=== PATIENT | female | born 1950 ===

== ENCOUNTER 2025-03-02 10:57 | Inpatient (IN) | payer MEDICARE, BC ==
[2025-03-02] MEDS ORDERED: Senokot S 8.6-50 MG TAB PO PRN (13:32)
[2025-03-02] MEDS ORDERED: Bisacodyl 10 MG SUPP PR PRN (13:32)
[2025-03-02] MEDS: Ferrous Sulfate 325 MG TAB PO SCH (16:34)
[2025-03-02] MEDS: HYDROcodone/Acetaminophen 10/325 mg Tablet PO PRN (17:27)
[2025-03-02] MEDS ORDERED: Famotidine 20 MG TAB PO SCH (21:00)
[2025-03-02] MEDS: Floranex 1 GM Packet PO SCH (21:07)
[2025-03-03 05:24] LABS: #Basophils 0.1 thou/uL (0.0-0.2); #Eosinophils 0.0 thou/uL (0.0-0.7); #Lymphocytes 3.8 thou/uL (1.20-3.40); #Monocytes 1.0 thou/uL (0.11-0.59); #Neutrophils 4.6 thou/uL (1.40-6.50); %Basophils 1.4 % (0.0-1.0); %Eosinophils 0.5 % (0.0-10.0); %Lymphocytes 39.5 % (21.0-51.0); %Monocytes 10.2 % (0.0-10.0); %Neutrophils 48.5 % (42.0-75.0); Hematocrit 36.6 % (36.0-47.0); Hemoglobin 12.8 g/dL (12.0-16.0); Mean Corpuscular Hemoglobin 31.7 pg (27.0-31.0); Mean Corpuscular Volume 90.4 fl (78.0-98.0); Platelet Count 234 10x3/uL (130-400); Red Blood Cell (RBC) Count 4.05 mill/uL (4.20-5.40); White Blood Cell (WBC) Count 9.5 10x3/uL (4.8-10.8)
[2025-03-03 05:32] LABS: ALT (SGPT) 16 U/L (Less than 34); AST (SGOT) 20 U/L (11-34); Albumin 3.4 g/dL (3.1-4.5); Alkaline Phosphatase 50 U/L (40-110); Anion Gap 16 mmol/L (10-20); BUN (Urea Nitrogen) 15 mg/dL (9.8-20.1); Bilirubin, Total 0.2 mg/dL (0.3-1.2); Calc. Creatinine Clearance 101 mL/min (70-130); Calcium 9.5 mg/dL (7.8-10.44); Carbon Dioxide 24 mmol/L (23-31); Chloride 99 mmol/L (98-107); Globulin 3.7 g/dL (2.4-3.5); Glucose 96 mg/dL (83-110); Potassium 3.9 mmol/L (3.5-5.1); Sodium 135 mmol/L (136-145)
[2025-03-03] MEDS ORDERED: predniSONE 10 MG TAB PO SCH (09:00)
[2025-03-03] MEDS: Pantoprazole 40 MG DR.TAB PO SCH (09:33)
[2025-03-03] MEDS: predniSONE 10 MG TAB PO SCH (09:33)
[2025-03-03] MEDS: Folic Acid 1 MG TAB PO SCH (09:34)
[2025-03-03] MEDS: Cyanocobalamin (Vitamin B-12) 1,000 MCG TAB PO SCH (09:34)
[2025-03-03] MEDS: Calcium Carbonate 600 MG + Vit D TAB PO SCH (09:34)
[2025-03-03] MEDS: Cholecalciferol 1,000 UNITS (25 MCG) TAB PO SCH (09:34)
[2025-03-03] MEDS: Acetaminophen 325 MG TAB PO PRN (11:38)
[2025-03-03] MEDS: Transdermal Patch Removal TOP SCH (20:13)
[2025-03-04 11:18] LABS: Glucose, Urine (Dipstick) Negative (Negative); Leukocyte Trace (Negative); Protein, Urine (Dipstick) 30 mg/dL (Neg-Trace); Specific Gravity, Urine 1.010 (1.005-1.030)
[2025-03-04 11:19] LABS: CAUTI Indications for Culture Dysuria,urgency,freq; RBC/HPF 0-3 HPF (0-3); WBC/HPF 0-3 HPF (0-3)
[2025-03-04 11:20] LABS: Urine Culture Reflex No No
[2025-03-06] MEDS: Oxybutynin 5 MG TAB PO SCH (09:32)
[2025-03-08 09:28] LABS: %Eosinophils 0.3 % (0.0-10.0); %Lymphocytes 31.6 % (21.0-51.0); %Monocytes 75.6 % (0.0-10.0); %Neutrophils 58.3 % (42.0-75.0); Hematocrit 37.4 % (36.0-47.0); Hemoglobin 13.3 g/dL (12.0-16.0); Manual Diff?? NO; Mean Corpuscular Hemoglobin 31.6 pg (27.0-31.0); Mean Corpuscular Volume 88.7 fl (78.0-98.0); Platelet Count 277 10x3/uL (130-400); Red Blood Cell (RBC) Count 4.21 mill/uL (4.20-5.40); White Blood Cell (WBC) Count 11.9 10x3/uL (4.8-10.8)
[2025-03-08 09:29] LABS: #Basophils 0.3 thou/uL (0.0-0.2); #Eosinophils 0.0 thou/uL (0.0-0.7); #Lymphocytes 3.8 thou/uL (1.20-3.40); #Monocytes 1.0 thou/uL (0.11-0.59); #Neutrophils 7.0 thou/uL (1.40-6.50); %Basophils 2.2 % (0.0-1.0)
[2025-03-08 09:38] LABS: ALT (SGPT) 12 U/L (Less than 34); AST (SGOT) 29 U/L (11-34); Albumin 3.7 g/dL (3.1-4.5); Alkaline Phosphatase 57 U/L (40-110); Anion Gap 18 mmol/L (10-20); BUN (Urea Nitrogen) 8 mg/dL (9.8-20.1); Bilirubin, Total 0.4 mg/dL (0.3-1.2); Calc. Creatinine Clearance 89 mL/min (70-130); Calcium 10.2 mg/dL (7.8-10.44); Carbon Dioxide 24 mmol/L (23-31); Chloride 96 mmol/L (98-107); Globulin 4.1 g/dL (2.4-3.5); Glucose 122 mg/dL (83-110); Potassium 3.7 mmol/L (3.5-5.1); Sodium 134 mmol/L (136-145)
[2025-03-08] MEDS: Calcium Carbonate 600 MG + Vit D TAB PO SCH (10:30)
[2025-03-09 12:07] LABS: #Basophils 0.2 thou/uL (0.0-0.2); #Eosinophils 0.0 thou/uL (0.0-0.7); #Lymphocytes 3.7 thou/uL (1.20-3.40); #Monocytes 0.7 thou/uL (0.11-0.59); #Neutrophils 6.5 thou/uL (1.40-6.50); %Basophils 1.5 % (0.0-1.0); %Eosinophils 0.2 % (0.0-10.0); %Lymphocytes 33.3 % (21.0-51.0); %Monocytes 6.0 % (0.0-10.0); %Neutrophils 58.9 % (42.0-75.0); Hematocrit 39.0 % (36.0-47.0); Hemoglobin 13.6 g/dL (12.0-16.0); Manual Diff?? NO; Mean Corpuscular Hemoglobin 30.7 pg (27.0-31.0); Mean Corpuscular Volume 87.8 fl (78.0-98.0); Platelet Count 276 10x3/uL (130-400); Red Blood Cell (RBC) Count 4.45 mill/uL (4.20-5.40); White Blood Cell (WBC) Count 11.8 10x3/uL (4.8-10.8)
[2025-03-10] MEDS: Scopolamine 1 mg/72 hour Patch TD SCH (07:42)
[2025-03-11] MEDS: Pantoprazole 40 MG VIAL IVP SCH (08:29)
[2025-03-11] MEDS: Metoclopramide HCl 10 MG (2 mL) VIAL IVP SCH (08:49)
[2025-03-11 09:47] LABS: #Basophils 0.4 thou/uL (0.0-0.2); #Eosinophils 0.0 thou/uL (0.0-0.7); #Lymphocytes 2.3 thou/uL (1.20-3.40); #Monocytes 0.9 thou/uL (0.11-0.59); #Neutrophils 8.2 thou/uL (1.40-6.50); %Basophils 0.3 % (0.0-1.0); %Eosinophils 0.2 % (0.0-10.0); %Lymphocytes 19.4 % (21.0-51.0); %Monocytes 7.9 % (0.0-10.0); %Neutrophils 69.4 % (42.0-75.0); Hematocrit 38.4 % (36.0-47.0); Hemoglobin 13.6 g/dL (12.0-16.0); Manual Diff?? NO; Mean Corpuscular Hemoglobin 31.2 pg (27.0-31.0); Mean Corpuscular Volume 88.2 fl (78.0-98.0); Platelet Count 270 10x3/uL (130-400); Red Blood Cell (RBC) Count 4.35 mill/uL (4.20-5.40); White Blood Cell (WBC) Count 11.9 10x3/uL (4.8-10.8)
[2025-03-11 09:50] LABS: ALT (SGPT) 9 U/L (Less than 34); AST (SGOT) 20 U/L (11-34); Albumin 3.6 g/dL (3.1-4.5); Alkaline Phosphatase 53 U/L (40-110); Anion Gap 17 mmol/L (10-20); BUN (Urea Nitrogen) 11 mg/dL (9.8-20.1); Bilirubin, Total 0.4 mg/dL (0.3-1.2); Calc. Creatinine Clearance 83 mL/min (70-130); Calcium 10.0 mg/dL (7.8-10.44); Carbon Dioxide 23 mmol/L (23-31); Chloride 96 mmol/L (98-107); Globulin 4.1 g/dL (2.4-3.5); Glucose 120 mg/dL (83-110); Lipase 10 U/L (8-78); Potassium 3.5 mmol/L (3.5-5.1); Sodium 132 mmol/L (136-145)
[2025-03-11] MEDS: Ondansetron PF 4 MG/2 ML Vial IVP PRN (13:21)
[2025-03-11 16:59] VITALS: BMI 31.6
[2025-03-12 18:59] LABS: Hematocrit 33.0 % (36.0-47.0); Hemoglobin 12.0 g/dL (12.0-16.0); Mean Corpuscular Hemoglobin 31.3 pg (27.0-31.0); Mean Corpuscular Volume 86.4 fl (78.0-98.0); Platelet Count 234 10x3/uL (130-400); Red Blood Cell (RBC) Count 3.82 mill/uL (4.20-5.40); White Blood Cell (WBC) Count 12.3 10x3/uL (4.8-10.8)
[2025-03-12 19:04] LABS: ALT (SGPT) 9 U/L (Less than 34); AST (SGOT) 21 U/L (11-34); Albumin 3.1 g/dL (3.1-4.5); Alkaline Phosphatase 47 U/L (40-110); Anion Gap 17 mmol/L (10-20); BUN (Urea Nitrogen) 4 mg/dL (9.8-20.1); Bilirubin, Total 0.4 mg/dL (0.3-1.2); Calc. Creatinine Clearance 114 mL/min (70-130); Calcium 9.4 mg/dL (7.8-10.44); Carbon Dioxide 23 mmol/L (23-31); Chloride 96 mmol/L (98-107); Globulin 3.9 g/dL (2.4-3.5); Glucose 91 mg/dL (83-110); Potassium 3.4 mmol/L (3.5-5.1); Sodium 133 mmol/L (136-145)
[2025-03-12 19:17] LABS: MDiff Complete? YES
[2025-03-13 14:06] LABS: Hematocrit 39.2 % (36.0-47.0); Hemoglobin 13.5 g/dL (12.0-16.0); MDiff Complete? YES; Manual Diff?? YES; Mean Corpuscular Hemoglobin 30.1 pg (27.0-31.0); Mean Corpuscular Volume 87.3 fl (78.0-98.0); Platelet Count 265 10x3/uL (130-400); Red Blood Cell (RBC) Count 4.49 mill/uL (4.20-5.40); White Blood Cell (WBC) Count 8.5 10x3/uL (4.8-10.8)
[2025-03-13 14:15] LABS: Target Cells SLIGHT = 2-5 cells (100X) (0-1/hpf)
[2025-03-13 14:16] LABS: Platelet Adequacy Comment Appears Adequate
[2025-03-13 14:22] LABS: ALT (SGPT) 9 U/L (Less than 34); AST (SGOT) 25 U/L (11-34); Albumin 3.5 g/dL (3.1-4.5); Alkaline Phosphatase 52 U/L (40-110); Anion Gap 17 mmol/L (10-20); BUN (Urea Nitrogen) Less than 4 mg/dL (9.8-20.1); Bilirubin, Total 0.4 mg/dL (0.3-1.2); Calc. Creatinine Clearance 106 mL/min (70-130); Calcium 9.9 mg/dL (7.8-10.44); Carbon Dioxide 24 mmol/L (23-31); Chloride 93 mmol/L (98-107); Globulin 4.3 g/dL (2.4-3.5); Glucose 109 mg/dL (83-110); Potassium 3.2 mmol/L (3.5-5.1); Sodium 131 mmol/L (136-145)
[2025-03-13 19:56] VITALS: TEMP 98.5
[2025-03-13 22:32] VITALS: BMI 30.6
[2025-03-14] MEDS ORDERED: Potassium Chloride 20 MEQ in Premix 1 BAG IVPB SCH (09:15)
[2025-03-14] MEDS: Pantoprazole 40 MG DR.TAB PO SCH (09:46)
[2025-03-14 10:27] LABS: Anion Gap 15 mmol/L (10-20); BUN (Urea Nitrogen) 7 mg/dL (9.8-20.1); Calc. Creatinine Clearance 81 mL/min (70-130); Calcium 9.4 mg/dL (7.8-10.44); Carbon Dioxide 24 mmol/L (23-31); Chloride 94 mmol/L (98-107); Glucose 111 mg/dL (83-110); Magnesium 1.7 mg/dL (1.6-2.6); Potassium 3.1 mmol/L (3.5-5.1); Sodium 130 mmol/L (136-145)
[2025-03-14] MEDS: Ondansetron PF 4 MG/2 ML Vial IVP SCH (10:57)
[2025-03-14] MEDS: Potassium Chloride 20 MEQ in Premix 1 BAG IVPB SCH (10:57)
[2025-03-14 12:51] VITALS: BP 117/69
== END 2025-03-14 17:38 | disposition short-term general hospital (02) | DRG 560 ==
LOC: NAV ACUTE 13:45
PROVIDERS: ADMIT Student in an Organized Health Care Education/Training Program; ATTEND Student in an Organized Health Care Education/Training Program
DX: Z47.89 Encounter for other orthopedic aftercare (principal); I82.402 Acute embolism and thrombosis of unspecified deep veins of left lower extremity; S22.081D Stable burst fracture of T11-T12 vertebra, subsequent encounter for fracture with routine healing; R53.81 Other malaise; M32.9 Systemic lupus erythematosus, unspecified; I10 Essential (primary) hypertension; E78.5 Hyperlipidemia, unspecified; H40.9 Unspecified glaucoma; J45.909 Unspecified asthma, uncomplicated; M19.90 Unspecified osteoarthritis, unspecified site; Z86.711 Personal history of pulmonary embolism; Z90.710 Acquired absence of both cervix and uterus; Z98.890 Other specified postprocedural states; Z98.49 Cataract extraction status, unspecified eye; H57.89 Other specified disorders of eye and adnexa; Z79.899 Other long term (current) drug therapy; R35.89 Other polyuria; K59.00 Constipation, unspecified; D50.9 Iron deficiency anemia, unspecified; D72.829 Elevated white blood cell count, unspecified; R11.2 Nausea with vomiting, unspecified; N32.81 Overactive bladder
CPT/HCPCS: 36415; 74018; 80048; 80053; 81001; 83690; 83735; 85025; J2405; J2470; J2765; J3480; J7120; J7512; Q0162